=== PATIENT | female | born 1950 | race Caucasian/White ===

== ENCOUNTER 2020-07-24 15:13 | Emergency (ER) | payer MEDICARE, BC ==
[2020-07-24] MEDS ORDERED: Sodium Chloride 0.9% 1,000 ML IV SCH (16:15)
--- NOTE | 2020-07-24 16:23 | EDM.PDOC ---
ED HPI GENERAL MEDICAL PROBLEM - General Chief Complaint: Respiratory Problem Stated Complaint: SOB & BLOOD CLOTS Time Seen by Provider: 07/24/20 15:50 Source of Information: Reports: Patient, Family, Provider History Limitations: Reports: No Limitations - History of Present Illness INITIAL COMMENTS - FREE TEXT/NARRATIVE: 70-year-old female without any chronic pulmonary problems, has felt short of breath for the last 3 to 4 weeks with activity, slowly worsening. No chest pain, no cough, no fever. She did get her second Covid vaccination a week or 2 before her symptoms started. She is very active. She is a non-smoker. She was evaluated at a clinic here in [facility], a D-dimer was obtained and was mildly elevated at 800 so she was sent to the emergency room. She has no peripheral edema, no weight gain, no GI symptoms. A CBC was also obtained from the clinic and she is not anemic and has a normal white count. Onset: Gradual Duration: Week(s): (3 to 4 weeks of symptoms) Associated Symptoms: Reports: No Other Symptoms denies Pain Score (Numeric/FACES): 0 - Related Data Allergies Allergy/AdvReac Type Severity Reaction Status Date / Time catgut sutures Allergy Bleeding Uncoded 07/24/20 15:41 Home Meds: Home Meds Rosuvastatin [Crestor] 10 mg PO DAILY 07/24/20 [History] Zolpidem Tartrate 2.5 mg PO BEDTIME 07/24/20 [History] lisinopriL [Lisinopril] 10 mg PO DAILY 07/24/20 [History] Past Medical History Cardiovascular History: Reports: High Cholesterol Genitourinary History: Reports: Urinary Incontinence CLINICAL REVIEWER History: Reports: Hematologic History: Reports: Blood Transfusion(s) Oncologic (Cancer) History: Reports: Breast - Infectious Disease History Infectious Disease History: Reports: Chicken Pox, Measles, Mumps - Past Surgical History Female Surgical History: Reports: Hysterectomy, Oophorectomy Oncologic Surgical History: Reports: Biopsy of Breast Other Oncologic Surgeries/Procedures: lumpectomy x2 Social & Family History - Tobacco Use Tobacco Use Status *Q: Never Tobacco User Second Hand Smoke Exposure: No - Alcohol Use Days Per Week of Alcohol Use: 7 Number of Drinks Per Day: 2 Total Drinks Per Week: 14 - Recreational Drug Use Recreational Drug Use: No ED ROS GENERAL - Review of Systems Review Of Systems: See Below Constitutional: Denies: Fever, Chills, Malaise HEENT: Reports: Rhinitis (Mild allergic symptoms) Respiratory: Reports: Shortness of Breath. Denies: Sputum Cardiovascular: Denies: Chest Pain, Palpitations GI/Abdominal: Denies: Abdominal Pain, Nausea, Vomiting : Reports: No Symptoms Musculoskeletal: Reports: No Symptoms Neurological: Denies: Dizziness, Headache, Syncope, Weakness Psychiatric: Reports: No Symptoms ED EXAM, GENERAL - Physical Exam Exam: See Below Exam Limited By: No Limitations General Appearance: Alert, No Apparent Distress Eye Exam: Bilateral Eye: Normal Inspection Head: Atraumatic Respiratory/Chest: No Respiratory Distress, Lungs Clear Cardiovascular: Regular Rate, Rhythm. No: Tachycardia, Systolic Murmur GI/Abdominal: Soft, Non-Tender Extremities: Normal Inspection. No: Pedal Edema, Renee's Sign Neurological: Alert, Oriented Psychiatric: Normal Affect, Normal Mood Skin Exam: Warm, Dry Course - Vital Signs Last Recorded V/S: Last Vital Signs Temp 96.9 F 07/24/20 15:50 Pulse 67 07/24/20 17:52 Resp 16 07/24/20 15:50 BP 146/87 H 07/24/20 17:52 Pulse Ox 100 07/24/20 17:52 - Orders/Labs/Meds Labs: Laboratory Tests 07/24/20 Range/Units 16:12 Sodium 142 (140-148) mmol/L Potassium 4.3 (3.6-5.2) mmol/L Chloride 103 (100-108) mmol/L Carbon Dioxide 25 (21-32) mmol/L Anion Gap 13.6 (5.0-14.0) mmol/L BUN 18 (7-18) mg/dL Creatinine 1.0 (0.6-1.0) mg/dL Est Cr Clr Drug Dosing 44.54 mL/min Estimated GFR (MDRD) 55 L (>60) Glucose 114 H (74-106) mg/dL Calcium 9.7 (8.5-10.1) mg/dL Meds: Medications Discontinued Medications Generic Name Dose Route Start Last Admin Trade Name Freq PRN Reason Stop Dose Admin Sodium Chloride 1,000 mls @ 1,000 mls/hr 07/24/20 16:15 07/24/20 16:25 Normal Saline IV 1,000 mls/hr ASDIRECTED RADHA Administration Sodium Chloride 100 mls @ 0 mls/hr 07/24/20 17:00 Normal Saline IV ASDIRECTED RADHA KVO Iopamidol 100 ml 07/24/20 17:00 Iopamidol 755 Mg/Ml 100 Ml Bottle IV . DIRECTED RADHA Sodium Chloride 10 ml 07/24/20 16:48 Sodium Chloride 0.9% 10 Ml Syringe FLUSH 07/24/20 16:49 ONETIME ONE - Re-Assessments/Exams Free Text/Narrative Re-Assessment/Exam: 07/24/20 16:15 Patient will be hydrated with 1 L normal saline, BMP obtained and if kidney function is good CT angiogram of the chest PE protocol will be obtained. 07/24/20 18:13 IMPRESSION: 1. No CT evidence of pulmonary embolism. 2. No acute cardiopulmonary process identified. 3. Suspect mild chronic linear change in the left upper lobe, and possible area of postoperative change in the deep left breast Above findings were discussed with the patient, she will follow up with Dr. Mora in the next several days if not improving satisfactorily. Departure - Departure Time of Disposition: 18:27 Disposition: Home, Self-Care 01 Clinical Impression: Shortness of breath on exertion - Discharge Information Instructions: Shortness of Breath, Adult, [id number] Referrals: Romulo Mora MD [Primary Care Provider] - Forms: ED Department Discharge Care Plan Goals: Increase activity as tolerated, and recheck with Dr. Mora when able to discuss symptoms and CT report. Sepsis Event Note (ED) - Evaluation Sepsis Screening Result: No Definite Risk
[2020-07-24] MEDS ORDERED: Sodium Chloride 0.9% 10 ML Syringe FLUSH ONE (16:48)
[2020-07-24] MEDS ORDERED: Sodium Chloride 0.9% 100 ML IV SCH (17:00)
[2020-07-24] MEDS ORDERED: Iopamidol 755 Mg/ML 100 ML Bottle IV SCH (17:00)
--- NOTE | 2020-07-24 18:14 | CRLCT ---
INDICATION: Assess for pulmonary embolism TECHNIQUE: CT chest PE was acquired with 100 mL Isovue 370 IV contrast. COMPARISON: None. FINDINGS: Heart and vasculature: Contrast opacification of the pulmonary arterial tree is adequate. No sign of pulmonary embolism. Heart size is normal. Thoracic aorta and pulmonary artery are normal in caliber. Lungs and pleural: No suspicious nodules or infiltrates. Mild linear scarring/stranding anterior lateral left upper lobe, with focal calcified granuloma also identified in this area, this is about 8 millimeters in transverse dimension. No pleural effusions, pleural thickening, or pneumothorax. Lymph nodes/mediastinum: No mediastinal, hilar, or axillary adenopathy. Thyroid gland is normal. Chest wall: No masses. There is an area of linear density within the deep left breast, images 75 through 79 which could represent postoperative change, correlation with surgical history recommended. Upper abdomen: Normal. Bones: Unremarkable for age. IMPRESSION: 1. No CT evidence of pulmonary embolism. 2. No acute cardiopulmonary process identified. 3. Suspect mild chronic linear change in the left upper lobe, and possible area of postoperative change in the deep left breast Please note that all CT scans at this facility use dose modulation, iterative reconstruction, and/or weight-based dosing when appropriate to reduce radiation dose to as low as reasonably achievable. Dictated by López Elaine MD @ 07/24/2020 6:11:[address] López Elaine @ Jul 24 2020 6:11PM
== END 2020-07-24 18:27 | disposition home or self-care (01) ==
LOC: JP.ED 15:13
DX: R06.02 Shortness of breath (principal); E78.00 Pure hypercholesterolemia, unspecified; Z91.048 Other nonmedicinal substance allergy status; Z79.899 Other long term (current) drug therapy
CPT/HCPCS: 36415; 71275; 80048; 99285; J7030; 99283